=== PATIENT | female | born 1970 | race Caucasian/White ===

== ENCOUNTER 2021-11-20 16:16 | Emergency (ER) | payer BC, SELFPAY ==
[2021-11-20 16:37] VITALS: BP 118/68; PULSE 78; RESP 20; TEMP 36.3; O2SAT 97; BMI 26.9
--- NOTE | 2021-11-20 18:07 | CRLHL7_ITS ---
For Patients: As a result of the Century Cures Act, medical imaging exams and procedure reports are released immediately into your electronic medical record. You may view this report before your referring provider. If you have questions, please contact your health care provider. INDICATION: Right upper quadrant pain. Known metastases from breast cancer. TECHNIQUE: Ultrasound abdomen limited. Sonographic images of the right upper quadrant were obtained using fajardo-scale and color Doppler images. COMPARISON: None. FINDINGS: Liver: Numerous hypoechoic liver lesions, suspicious for metastatic disease. No masses. No intrahepatic biliary dilatation. Gallbladder: No stones or sludge. Normal wall thickness. No pericholecystic fluid. Gallbladder wall thickness measures 2 mm. Common bile duct: 6 mm. Pancreas: Unremarkable. Right kidney: Length 8.6 cm. Normal echotexture and cortex. No masses, stones, or hydronephrosis. Vasculature: Proximal abdominal aorta and IVC are unremarkable. IMPRESSION: 1. Multiple hypoechoic liver lesions, suspicious for liver metastases with clinical history of breast cancer and metastatic disease. 2. Normal gallbladder. No biliary dilatation. Dictated by Bernardo Gandhi MD @ 11/20/2021 7:38:11 PM Dictated by: Bernardo Gandhi MD @ 11/20/2021 19:38:18 (Electronically Signed)
--- NOTE | 2021-11-20 18:09 | CRLHL7_ITS ---
For Patients: As a result of the Century Cures Act, medical imaging exams and procedure reports are released immediately into your electronic medical record. You may view this report before your referring provider. If you have questions, please contact your health care provider. INDICATION: Right lower chest and right clavicular region pain. History of breast cancer. History of known metastatic disease to the liver. COMPARISON: Ultrasound of the right upper quadrant from today. TECHNIQUE: CT examination of the chest was performed with the uneventful intravenous administration of 100 cc of Omnipaque 350 while 3 mm thick axial sections were obtained from above the apices of the lungs through the mid renal level. Please note that all CT scans at this facility use dose modulation, iterative reconstruction, and/or weight-based dosing when appropriate to reduce radiation dose to as low as reasonably achievable. FINDINGS: : There is no sign of pulmonary embolism, with normal enhancement and branching of the pulmonary arteries. The lungs are clear with no sign of significant infiltrate or mass. There is no sign of mediastinal or hilar mass or adenopathy. The heart is normal in appearance for the patient`s age. There is age appropriate appearance of the thoracic aorta and ascending great vessels. There is no sign of supraclavicular or right axillary mass or adenopathy. A few surgical clips are seen in the left superior-lateral posterior breast, and in the left axilla consistent with previous biopsy and lymph node sampling. There is no sign of any residual or recurrent mass in the breast. There is no sign of lymphadenopathy or mass in the left axilla. The visualized superior liver has a few poorly circumscribed, hypodense masses scattered throughout it, consistent with known metastatic disease. These are located in segment 3 of the left lobe of the liver, segment 6 of the right lobe and in segment 8 of the right lobe. The visualized superior spleen, pancreas, kidneys, and adrenals are normal in appearance. The osseous structures are normal in appearance for the patient`s age. There is no sign of any lytic or blastic lesions to suggest metastatic disease to the bone. IMPRESSION: No sign of pulmonary embolism. No sign of abnormality in the lungs. Minor postoperative changes in the left breast and left axilla. A few vague, hypodense mass is present in the liver consistent with known metastatic disease. No sign of additional metastatic lesions elsewhere in the chest or upper abdomen. Please note that all CT scans at this facility use dose modulation, iterative reconstruction, and/or weight-based dosing when appropriate to reduce radiation dose to as low as reasonably achievable. Dictated by Sarbjit Beal MD @ 11/20/2021 7:46:13 PM (Electronically Signed)
--- NOTE | 2021-11-20 18:14 | ED.GENADULT ---
HPI - General Adult General Chief complaint: Abdominal Pain Stated complaint: Requesting Oncology Tests Time Seen by Provider: 11/20/21 17:57 Source: patient Mode of arrival: ambulatory Limitations: no limitations History of Present Illness HPI narrative: 51-year-old female coming in today concerned about abdomen and shoulder pain. States that on Tuesday she felt a right-sided anterior shoulder pain and shortly thereafter began having right upper quadrant abdominal pain. Movement makes it worse and deep breaths makes it worse. Nothing seems to make it better. It is not associated with eating. She denies any diarrhea or constipation. No nausea or vomiting. No dysuria increased frequency or urgency. No fevers or chills. Patient does have a history of metastatic breast cancer with couple of liver lesions, she is currently getting immunotherapy. Last chemotherapy was about 6 weeks ago per patient's account. Related Data Home Medications Medication Instructions Recorded Confirmed hydrocortisone 10 mg tablet 5 mg PO Q8H 11/20/21 11/20/21 hydrocortisone 5 mg tablet 5 mg PO Q8H 11/20/21 11/20/21 polyethylene glycol 3350 17 g 11/20/21 gram/dose oral powder triamcinolone acetonide 0.1 % 1 applic topical BID 11/20/21 11/20/21 topical cream Allergies Allergy/AdvReac Type Severity Reaction Status Date / Time No Known Drug Allergies Allergy Verified 11/20/21 19:08 Review of Systems Status of ROS: Reports: 10 or more systems reviewed and unremarkable except as noted in History and below [facility] Social History Smoking Status: Former smoker Do you use any of these nicotine containing products: None Second hand tobacco smoke exposure: Yes How often do you have a drink containing alcohol: never How often do you have six or more drinks on one occasion: Never AUDIT-C Alcohol total score: 0 Non-prescribed substance use: denies use service: No Exam Narrative: Exam Narrative: Well-nourished well-developed patient in no acute distress. Alert and oriented. Answers questions appropriately. Mood and affect are appropriate. Thoughts are goal oriented and rational. No tangential or magical thinking noted. Patient speaks in full sentences without needing to catch her breath. She has lost hair secondary to chemotherapy. HEENT: Normocephalic atraumatic. Pupils are equally round reactive to light. Extraocular muscles are intact. Conjunctivae are moist without any icterus noted. Moist mucous membranes. Posterior pharynx is normal. Neck is soft without any lymphadenopathy or thyromegaly. No masses are appreciated. Cardiovascular: Heart is regular rate and rhythm S1 and S2 are present without any murmurs. Lungs: Clear to auscultation bilaterally no wheezes rhonchi or rales are appreciated. Patient takes deep breaths without significant discomfort. Abdomen: Soft and nontender nondistended with normal bowel sounds. No guarding or rebound. No masses or organomegaly appreciated. Negative Rios sign. I cannot elicit her right upper quadrant tenderness on examination. Extremities: Bilateral lower extremities are without edema. Normal DP and PT pulses. Skin: Well perfused without any obvious rashes. Back: Back is normal appearance. Her neck is without tenderness to palpation. I cannot elicit her tenderness with manipulation of her shoulder. She has full range of motion at the shoulder without discomfort. Const: Vital Signs, click to edit/add: Vital Signs - 24 hr 11/20/21 16:37 Temperature 97.3 F L Pulse Rate [Right Pulse Oximeter] 78 Respiratory Rate 20 Blood Pressure [Ri ght Upper Arm] 118/68 Pulse Oximetry 97 Course Course Hospital Course: Labs were drawn, chest CT and right upper quadrant ultrasound was done-all fairly unremarkable aside from liver lesions from known metastatic disease. Vital Signs Vital signs: Initial Vital Signs Temperature 97.3 F L 11/20/21 16:37 Temperature Source Temporal Artery Scan 11/20/21 16:37 Pulse Rate 78 11/20/21 16:37 Respiratory Rate 20 11/20/21 16:37 Blood Pressure 118/68 11/20/21 16:37 Blood Pressure Mean 84 11/20/21 16:37 Blood Pressure Position Sitting 11/20/21 16:37 Pulse Oximetry 97 11/20/21 16:37 Vital Signs Temperature 97.3 F L 11/20/21 16:37 Pulse Rate 78 11/20/21 16:37 Respiratory Rate 20 11/20/21 16:37 Blood Pressure 118/68 11/20/21 16:37 Pulse Oximetry 97 11/20/21 16:37 Temperature 97.3 F L 11/20/21 16:37 Pulse Rate 78 11/20/21 16:37 Respiratory Rate 20 11/20/21 16:37 Blood Pressure 118/68 11/20/21 16:37 Pulse Oximetry 97 11/20/21 16:37 Medical Decision Making MDM Narrative Medical decision making narrative: 51-year-old female with metastatic breast cancer presenting with right upper quadrant and right shoulder discomfort. Labs show no evidence of infection or inflammation. LFTs slightly elevated but nothing significant. Imaging showing liver lesions but no gallbladder pathology and no pulmonary pathology. Cause of her discomfort unclear. We discussed muscular strain, irritation of the diaphragm due to liver lesions. We discussed monitoring at this time with symptomatic treatment. We discussed reasons to return to the ER. Patient was agreeable he had no other questions. Medical Records Medical records reviewed: Yes I reviewed the patient's medical records Lab Data Lab results reviewed: Yes I reviewed the patient's lab results Labs: Lab Results 11/20/21 11/20/21 11/20/21 Range/Units 18:35 18:35 18:35 WBC 6.16 (4.50-11.00) K/uL RBC 4.62 (4.00-5.20) m/uL Hgb 12.9 (12.0-16.0) gm/dL Hct 40.0 (33.0-51.0) % MCV 87 (80-100) fL MCH 28 (26-34) pg MCHC 32 (32-36) gm/dL RDW Coeff of Edin 15.0 (11.5-15.5) % Plt Count 310 (140-440) K/uL Neut % (Auto) 70.2 (42.0-72.0) % Lymph % (Auto) 19.5 L (20-44) % Mchenry % (Auto) 6.5 (0.0-11.0) % Eos % (Auto) 3.2 (0.0-7.0) % Baso % (Auto) 0.6 (0.0-3.0) % Neut # (Auto) 4.32 (1.7-7.0) K/uL Lymph # (Auto) 1.20 (0.90-2.90) K/uL Mchenry # (Auto) 0.40 (0.00-0.90) K/UL Eos # (Auto) 0.20 (0.00-0.50) K/uL Baso # (Auto) 0.04 (0.00-0.30) K/uL Abs Immat Gran (auto) 0.00 (0.00-0.30) K/uL Sodium 140 (135-149) mmol/L Potassium 4.4 (3.6-5.1) mmol/L Chloride 102 (96-114) mmol/L Carbon Dioxide 29 (20-32) mmol/L BUN 13 (7-30) mg/dL Creatinine 0.9 (0.5-1.5) mg/dL Estimated Creat Clear 60.49 Estimated GFR 77 ml/min Glucose 97 (60-115) mg/dL Lactate 0.8 (0.5-1.9) mmol/L Calcium 9.6 (8.4-10.6) mg/dL Total Bilirubin 0.3 (0.1-1.5) mg/dL Direct Bilirubin 0.1 (0.0-0.5) mg/dL AST 40 H (12-35) U/L ALT 46 H (4-35) U/L Alkaline Phosphatase 103 (40-150) U/L Troponin I 0.02 (0.01-0.04) ng/mL C-Reactive Protein 0.5 (0.5-1.0) mg/dL Total Protein 7.0 (6.0-8.3) g/dL Albumin 4.0 (3.3-5.0) g/dL Lipase 126 (23-300) U/L 11/20/21 Range/Units 18:35 WBC (4.50-11.00) K/uL RBC (4.00-5.20) m/uL Hgb (12.0-16.0) gm/dL Hct (33.0-51.0) % MCV (80-100) fL MCH (26-34) pg MCHC (32-36) gm/dL RDW Coeff of Edin (11.5-15.5) % Plt Count (140-440) K/uL Neut % (Auto) (42.0-72.0) % Lymph % (Auto) (20-44) % Mchenry % (Auto) (0.0-11.0) % Eos % (Auto) (0.0-7.0) % Baso % (Auto) (0.0-3.0) % Neut # (Auto) (1.7-7.0) K/uL Lymph # (Auto) (0.90-2.90) K/uL Mchenry # (Auto) (0.00-0.90) K/UL Eos # (Auto) (0.00-0.50) K/uL Baso # (Auto) (0.00-0.30) K/uL Abs Immat Gran (auto) (0.00-0.30) K/uL Sodium (135-149) mmol/L Potassium (3.6-5.1) mmol/L Chloride (96-114) mmol/L Carbon Dioxide (20-32) mmol/L BUN (7-30) mg/dL Creatinine (0.5-1.5) mg/dL Estimated Creat Clear Estimated GFR ml/min Glucose (60-115) mg/dL Lactate (0.5-1.9) mmol/L Calcium (8.4-10.6) mg/dL Total Bilirubin (0.1-1.5) mg/dL Direct Bilirubin (0.0-0.5) mg/dL AST (12-35) U/L ALT (4-35) U/L Alkaline Phosphatase (40-150) U/L Troponin I Cancelled (0.01-0.04) ng/mL C-Reactive Protein (0.5-1.0) mg/dL Total Protein (6.0-8.3) g/dL Albumin (3.3-5.0) g/dL Lipase (23-300) U/L Imaging Data CT scan - chest: Attestation: I have reviewed the pertinent imaging results. Radiologist's impression: FINDINGS: : There is no sign of pulmonary embolism, with normal enhancement and branching of the pulmonary arteries. The lungs are clear with no sign of significant infiltrate or mass. There is no sign of mediastinal or hilar mass or adenopathy. The heart is normal in appearance for the patient`s age. There is age appropriate appearance of the thoracic aorta and ascending great vessels. There is no sign of supraclavicular or right axillary mass or adenopathy. A few surgical clips are seen in the left superior-lateral posterior breast, and in the left axilla consistent with previous biopsy and lymph node sampling. There is no sign of any residual or recurrent mass in the breast. There is no sign of lymphadenopathy or mass in the left axilla. The visualized superior liver has a few poorly circumscribed, hypodense masses scattered throughout it, consistent with known metastatic disease. These are located in segment 3 of the left lobe of the liver, segment 6 of the right lobe and in segment 8 of the right lobe. The visualized superior spleen, pancreas, kidneys, and adrenals are normal in appearance. The osseous structures are normal in appearance for the patient`s age. There is no sign of any lytic or blastic lesions to suggest metastatic disease to the bone. IMPRESSION: No sign of pulmonary embolism. No sign of abnormality in the lungs. Minor postoperative changes in the left breast and left axilla. A few vague, hypodense mass is present in the liver consistent with known metastatic disease. No sign of additional metastatic lesions elsewhere in the chest or upper abdomen. US - abdomen: Attestation: I have reviewed the pertinent imaging results. Radiologist's impression: FINDINGS: Liver: Numerous hypoechoic liver lesions, suspicious for metastatic disease. No masses. No intrahepatic biliary dilatation. Gallbladder: No stones or sludge. Normal wall thickness. No pericholecystic fluid. Gallbladder wall thickness measures 2 mm. Common bile duct: 6 mm. Pancreas: Unremarkable. Right kidney: Length 8.6 cm. Normal echotexture and cortex. No masses, stones, or hydronephrosis. Vasculature: Proximal abdominal aorta and IVC are unremarkable. IMPRESSION: 1. Multiple hypoechoic liver lesions, suspicious for liver metastases with clinical history of breast cancer and metastatic disease. 2. Normal gallbladder. No biliary dilatation. ECG Data Attestation: I personally reviewed and interpreted this ECG as follows: (Normal sinus rhythm, pulse is 60) Discharge Plan Discharge Clinical Impression: Acute shoulder pain, Abdominal pain Patient Disposition: Home, Self-Care Condition: Stable Additional Instructions: Follow-up with your oncologist or primary care provider as needed. Return to the ER if you develop a fever, worsening pain, or vomiting. Prescriptions: No Action hydrocortisone 10 mg tablet 5 mg PO Q8H Rx Instructions: 10mg in the am, 10mg midday and 5mg in the evening. hydrocortisone 5 mg tablet 5 mg PO Q8H Label Comments: TAKE 3 TABLET UPON WAKING AND 1 TABLET 6-7 HOURS LATER polyethylene glycol 3350 17 gram/dose powder triamcinolone acetonide 0.1 % cream 1 applic TOPICAL BID Label Comments: APPLY 1 APPLICATION TOPICALLY TWICE DAILY. APPLY TO BACK Follow Up/Referrals: Ashley Allen MD [Primary Care Provider] - Stand Alone Forms: MyHealth Info Instructions
[2021-11-20 18:43] LABS: Basophils Absolute Auto 0.04 K/uL (0.00-0.30); Basophils Percent Auto 0.6 % (0.0-3.0); Eosinophils Percent Auto 3.2 % (0.0-7.0); Hemoglobin* 12.9 gm/dL (12.0-16.0); Lactate* 0.8 mmol/L (0.5-1.9); Lymphocytes Percent Auto 19.5 % (20-44); Mean Corpuscular HGB Conc 32 gm/dL (32-36); Mean Corpuscular Hemoglobin 28 pg (26-34); Mean Corpuscular Volume 87 fL (80-100); Monocytes Percent Auto 6.5 % (0.0-11.0); Neutrophils Absolute Auto 4.32 K/uL (1.7-7.0); Neutrophils Percent Auto 70.2 % (42.0-72.0); Platelet Count* 310 K/uL (140-440); Red Blood Count 4.62 m/uL (4.00-5.20); Slide Review Reflex No; White Blood Count* 6.16 K/uL (4.50-11.00)
[2021-11-20 19:04] LABS: Chloride* 102 mmol/L (96-114); Potassium* 4.4 mmol/L (3.6-5.1); Sodium* 140 mmol/L (135-149)
[2021-11-20 19:06] LABS: Bilirubin Direct* 0.1 mg/dL (0.0-0.5); Bilirubin Total* 0.3 mg/dL (0.1-1.5); Carbon Dioxide* 29 mmol/L (20-32); Creatinine* 0.9 mg/dL (0.5-1.5); Est. Creatinine Clearance* 60.49; Estimated Glomerular Filt Rate 77 ml/min
[2021-11-20 19:07] LABS: Alanine Aminotransferase* 46 U/L (4-35); Alkaline Phosphatase* 103 U/L (40-150); Aspartate Amino Transferase* 40 U/L (12-35); Blood Urea Nitrogen* 13 mg/dL (7-30); Calcium* 9.6 mg/dL (8.4-10.6); Glucose* 97 mg/dL (60-115); Lipase* 126 U/L (23-300)
[2021-11-20 19:18] LABS: Troponin I* 0.02 ng/mL (0.01-0.04)
[2021-11-20 19:35] LABS: C Reactive Protein* 0.5 mg/dL (0.5-1.0)
== END 2021-11-20 20:46 | disposition home or self-care (01) ==
PROVIDERS: Emergency Provider Family Medicine; PCP Family Medicine
DX: R10.11 Right upper quadrant pain (principal); C50.919 Malignant neoplasm of unspecified site of unspecified female breast
CPT/HCPCS: 36415; 71260; 76705; 80048; 80076; 83605; 83690; 84484; 85025; 86140; 93005; 99285; Q9967

== ENCOUNTER 2023-01-05 15:52 | Inpatient (IN) | payer BC, SELFPAY ==
[2023-01-05] VITALS (7 sets, daily range): BP systolic 120–166; BP diastolic 63–77; PULSE 85–105; RESP 16–28; TEMP 36.9–40; O2SAT 93; BMI 31.5; BMI 32.2
--- NOTE | 2023-01-05 16:25 | CRLHL7_ITS ---
For Patients: As a result of the Century Cures Act, medical imaging exams and procedure reports are released immediately into your electronic medical record. You may view this report before your referring provider. If you have questions, please contact your health care provider. Indication: Cough Technique: Chest 2 views Comparison: None Findings/Impression: Cardiovascular and mediastinum: Heart size and vasculature are normal in caliber and appearance. Mediastinum is within normal limits. Right-sided Port-A-Cath with tip in the proximal right atrium. Lungs and pleural spaces: Lungs are clear. No sign of infiltrate or mass. No sign of pleural effusion. No pneumothorax. Bones and soft tissues: Left breast surgical clips. Dictated by Zeb Balderrama MD @ 01/05/2023 5:18:13 PM (Electronically Signed)
--- NOTE | 2023-01-05 16:30 | ED_ITS ---
HPI - General Adult General Date Seen: 01/05/23 Chief complaint: Cough Stated complaint: Cough, fever Time Seen by Provider: 01/05/23 15:59 Source: patient Mode of arrival: ambulatory Limitations: no limitations History of Present Illness HPI narrative: Patient is a 52-year-old female with a history of metastatic breast cancer to liver and lymph nodes on chemotherapy through [facility] presenting to the emergency department for cough and fever. States symptoms started last night. She is not taking anything for the fever today. Symptoms continued so she decided come the emergency department to be evaluated. Does state her chemotherapy has caused her to have a low white blood cell count. States last week she brought her to urgent care for stitches Neuro several sick peo ple there. Her that she is not aware of any sick contacts. Denies chest pain, weakness, night blindness, dizziness, numbness. States she is short of breath but not any different than her baseline. She does have a history of blood clots and is on Eliquis. States she has not been very hungry has been feeling mildly nauseated. Also states she does state cortisone for adrenal insufficiency. No other medical issues. No other concerns at this time. Denies coughing up any phlegm. Related Data Home Medications Medication Instructions Recorded Confirmed hydrocortisone 10 mg tablet 5 mg PO Q8H 11/20/21 11/20/21 hydrocortisone 5 mg tablet 5 mg PO Q8H 11/20/21 11/20/21 polyethylene glycol 3350 17 g 11/20/21 gram/dose oral powder triamcinolone acetonide 0.1 % 1 applic topical BID 11/20/21 11/20/21 topical cream Allergies Allergy/AdvReac Type Severity Reaction Status Date / Time No Known Drug Allergies Allergy Verified 01/05/23 16:07 Review of Systems Status of ROS: Reports: 10 or more systems reviewed and unremarkable except as noted in History and below [facility] Medical History (Updated 01/05/23 @ 20:03 by Camila Samuels MD) Breast cancer metastasized to liver ?C50.919 - Malignant neoplasm of unspecified site of unspecified female breast (ICD-10) ?C78.7 - Secondary malignant neoplasm of liver and intrahepatic bile duct (ICD-10) Pulmonary embolism ?I26.99 - Other pulmonary embolism without acute cor pulmonale (ICD-10) DVT (deep venous thrombosis) ?I82.409 - Acute embolism and thrombosis of unspecified deep veins of unspecified lower extremity (ICD-10) Surgical History (Updated 01/05/23 @ 20:03 by Camila Samuels MD) H/O LEEP ?Z98.890 - Other specified postprocedural states (ICD-10) Hx of appendectomy ?Z90.49 - Acquired absence of other specified parts of digestive tract (ICD- 10) Social History What is your current living situation?: I presently have a place to live Problems where you live: no known problems Problems where you live details: NA In the past 12 months, utilities in danger of being shut off: no In past 12 months, lack of transportation kept you from medical appts, meetings, work, or getting things needed for daily living: no In the past 12 mos, have been you worried that your food would run out before you had money to buy more?: never true In the past 12 mos, the food you bought just didn't last and you didn't have money to buy more?: never true Smoking Status: Former smoker Do you use any of these nicotine containing products: None Second hand tobacco smoke exposure: Yes How often do you have a drink containing alcohol: never How often do you have six or more drinks on one occasion: Never AUDIT-C Alcohol total score: 0 Non-prescribed substance use: denies use Caffeine: No How often does anyone, including family, friends and others, physically hurt you : never How often does anyone, including family, friends and others, insult or talk down to you: never How often does anyone, including family, friends and others, threaten you with harm: never How often does anyone, including family, friends and others, scream or curse at you: never service: No Exam Narrative: Exam Narrative: Const: Well-nourished, Well-developed, in mild distress Eyes: PERRL, no conjunctival injection, and symmetrical lids HENT: Atraumatic external nose and ears. Moist mucous membranes. Neck: Symmetric, trachea midline, No thyromegaly. CVS: Tachycardia, No murmurs or gallops. Peripheral pulses 2+ and equal in all extremities RESP: Unlabored respiratory effort. Clear to auscultation bilaterally. GI: Nontender/Nondistended, No rebound or guarding. MSK:Extremities w/o deformity, Normal Active ROM Skin: Warm, Dry. No rashes or lesions. Neuro: Normal Muscle tone, No focal neurological deficits. Psych: Awake, Alert, & Oriented x3. Appropriate mood and affect. Const: Vital Signs, click to edit/add: Vital Signs - 24 hr 01/05/23 16:07 01/05/23 18:32 01/05/23 19:31 Temperature 100.9 F H 104 F H 99.9 F H Pulse Rate [Pulse Oximeter] 100 105 H Respiratory Rate 28 H Blood Pressure [Ri t Upper Arm] 166/77 H 153/73 H Pulse Oximetry 93 93 Oxygen Delivery Me thod Room Air Room Air Course Vital Signs Vital signs: Initial Vital Signs Temperature 100.9 F H 01/05/23 16:07 Temperature Source Temporal Artery Scan 01/05/23 16:07 Pulse Rate 100 01/05/23 16:07 Pulse Rhythm Regular 01/05/23 16:07 Respiratory Rate 28 H 01/05/23 16:07 Blood Pressure 166/77 H 01/05/23 16:07 Blood Pressure Mean 106 H 01/05/23 16:07 Blood Pressure Position Supine 01/05/23 16:07 Pulse Oximetry 93 01/05/23 16:07 Oxygen Delivery Method Room Air 01/05/23 16:07 Vital Signs Temperature 100.9 F H 01/05/23 16:07 Pulse Rate 100 01/05/23 16:07 Respiratory Rate 28 H 01/05/23 16:07 Blood Pressure 166/77 H 01/05/23 16:07 Pulse Oximetry 93 01/05/23 16:07 Oxygen Delivery Method Room Air 01/05/23 16:07 Temperature 99 F 01/05/23 19:55 Pulse Rate 96 01/05/23 19:55 Respiratory Rate 22 01/05/23 19:55 Blood Pressure 148/75 H 01/05/23 19:55 Pulse Oximetry 93 01/05/23 19:55 Oxygen Delivery Method Room Air 01/05/23 19:55 Medical Decision Making MDM Narrative Medical decision making narrative: Patient is a 52-year-old female on chemotherapy presenting for a fever. She does have a fever here in triage. There is concern for neutropenic fever and her chemotherapy has caused her to have a low white blood cell count. She denies any increased shortness of breath but she is tachycardic to 28. While she is on Eliquis with her history of if still concerned she could be developing a blood clot. We will order D-dimer. COVID/flu/RSV was ordered. Symptoms could be from pneumonia. Chest x-ray has been ordered. She is having no abdominal pain but some mild nausea Zofran was given. Tylenol given for her fever. She does states she has been feeling dehydrated and fluids will be given. Patient's lab work returns with a white count 3.77. She has a neutrophil count of 1.8. She is not having neutropenic fever at this time. D-dimer is elevated 2.83 and CTA was ordered. Lactate returns at 2.2. Repeat reflux scheduled for 4 hours. She is currently receiving fluids. Urine shows no signs of infection. COVID/flu/RSV were negative. She is given Tylenol for her fever. After this we rechecked her vitals few hours later and temperature is now 104. She continues to be tachypneic and tachycardic. She states she has had similar symptoms before roughly 5 weeks ago right after she started her cancer medication. Eribulin. She states at that time it occurred after about a day or 2. This time symptoms occurring over week later. I did speak to the on-call oncologist at the [facility], where she does her treatment, any states well it could be secondary to that they cannot definitively say. He recommends observation in the hospital overnight. She continues to have a fever she has good empiric antibiotics. Patient is given Toradol for her fever. Next fallen was 0.02. We will repeat this. Lipase within normal limits. CTA returned showing no concerning abnormalities. EKG shows no concerning abnormalities. Patient was accepted to the hospitalist service. Blood cultures ordered . Of note the patient did complain about and scratchy feeling in the back of her throat. She says it comes and goes. It is not appear to be blocking area where this time. To consider doing a CT scan of her neck but she looks stable at this point I believe she needs more contrast. I informed the hospitalist of this. Lab Data Labs: Lab Results 01/05/23 Range/Units 16:26 WBC 3.77 L (4.50-11.00) K/uL RBC 3.83 L (4.00-5.20) m/uL Hgb 12.1 (12.0-16.0) gm/dL Hct 37.0 (33.0-51.0) % MCV 97 (80-100) fL MCH 32 (26-34) pg MCHC 33 (32-36) gm/dL RDW Coeff of Edin 16.8 H (11.5-15.5) % Plt Count 246 (140-440) K/uL Neut % (Auto) 46.9 (42.0-72.0) % Lymph % (Auto) 24.1 (20-44) % Harrison % (Auto) 27.6 H (0.0-11.0) % Eos % (Auto) 0.0 (0.0-7.0) % Baso % (Auto) 1.1 (0.0-3.0) % Neut # (Auto) 1.80 (1.7-7.0) K/uL Lymph # (Auto) 0.90 (0.90-2.90) K/uL Harrison # (Auto) 1.00 H (0.00-0.90) K/UL Eos # (Auto) 0.00 (0.00-0.50) K/uL Baso # (Auto) 0.00 (0.00-0.30) K/uL Abs Immat Gran (auto) 0.00 (0.00-0.30) K/uL Imm/Tot Granulo (auto) 0.3 % D-Dimer Quant (PE/DVT) 2.83 H (0.00-0.50) ug/ml Sodium 136 (135-149) mmol/L Potassium 3.6 (3.6-5.1) mmol/L Chloride 104 (96-114) mmol/L Carbon Dioxide 24 (20-32) mmol/L Anion Gap 8 (7-15) mEq/L BUN 9 (7-30) mg/dL Creatinine 0.7 (0.5-1.5) mg/dL Estimated Creat Clear 76.88 Estimated GFR 103 ml/min Glucose 95 (60-115) mg/dL Lactate 2.2 H (0.5-1.9) mmol/L Calcium 8.9 (8.4-10.6) mg/dL Magnesium 1.9 (1.5-2.6) mg/dL Total Bilirubin 1.0 (0.1-1.5) mg/dL AST 96 H (12-35) U/L ALT 41 H (4-35) U/L Alkaline Phosphatase 86 (40-150) U/L Troponin I 0.02 (0.01-0.04) ng/mL Total Protein 6.6 (6.0-8.3) g/dL Albumin 3.8 (3.3-5.0) g/dL Lipase 116 (23-300) U/L Urine Color Yellow (Yellow) Urine Appearance Cloudy A (Clear) Urine pH 8.5 (5.0-8.5) Ur Specific [place] 1.020 (1.000-1.030) Urine Protein Negative (Negative) Urine Glucose (UA) Negative (Negative) Urine Ketones Negative (Negative) Urine Blood Negative (Negative) Urine Nitrite Negative (Negative) Urine Bilirubin Negative (Negative) Urine Urobilinogen 0.2 (0.2-1.0) Ur Leukocyte Esterase Trace A (Negative) Urine RBC 0-2 (0-2) Urine WBC 2-5 (0-5) Ur Squamous Epith Cells Few (None-Few) Urine Bacteria None (None) SARS-CoV-2 (PCR) Negative SARS-CoV-2 (Negative) Influenza Type A (PCR) Negative PCR FLU A (Negative) Influenza Type B (PCR) Negative PCR FLU B (Negative) RSV (PCR) Negative PCR RSV (Negative) Imaging Data Chest x-ray: Radiologist's impression: Indication: Cough Technique: Chest 2 views Comparison: None Findings/Impression: Cardiovascular and mediastinum: Heart size and vasculature are normal in caliber and appearance. Mediastinum is within normal limits. Right-sided Port-A-Cath with tip in the proximal right atrium. Lungs and pleural spaces: Lungs are clear. No sign of infiltrate or mass. No sign of pleural effusion. No pneumothorax. Bones and soft tissues: Left breast surgical clips. Dictated by Zeb Balderrama MD @ 01/05/2023 5:18:13 PM CTA chest: Radiologist's impression: INDICATION: Cough, tachypnea, history breast cancer with metastatic disease to the liver TECHNIQUE: CT chest pulmonary PE protocol acquired with 95 cc Isovue 370 IV contrast. COMPARISON: November 20, 2021, chest radiograph January 05, 2023 FINDINGS: Cardiovascular structures: Normal vascular enhancement of the pulmonary arteries, no sign of pulmonary embolism. Heart size is normal. No sign of aneurysm in the thoracic aorta. Right-sided Port-A-Cath tip terminates at the level of the right atrium. Mediastinum and saran: No mass or adenopathy. Lungs: Clear. Pleura and pericardium: No effusions. Chest wall and axilla: No mass or adenopathy. Surgical clips in the left axilla and left breast. Upper abdomen: There are several ill-defined hyperdense masses in the liver on a background of diffuse hepatic steatosis. These are suboptimally seen on this arterial phase imaging CT. 1.3 cm portacaval lymph node. Bones: No significant findings. No suspicious osseous lesions. IMPRESSION: No pulmonary embolism or pneumonia. Ill-defined hyperdense masses in the liver on a background of diffuse hepatic steatosis. Consider MRI liver to evaluate extent of metastatic disease. 1.3 cm portacaval lymph node. Please note that all CT scans at this facility use dose modulation, iterative reconstruction, and/or weight-based dosing when appropriate to reduce radiation dose to as low as reasonably achievable. Dictated by Suni Gomez MD @ 01/05/2023 6:37:41 PM ECG Data Attestation: I personally reviewed and interpreted this ECG as follows: Prior ECG tracings: available for review (11/21/2021) Interpretation: Sinus tachycardia at 305 beats per minute, normal intervals, normal axis, no ST T-wave abnormalities Discharge Plan Discharge Clinical Impression: Fever Qualifiers: Fever type: unspecified Qualified Code(s): R50.9 - Fever, unspecified Patient Disposition: Admitted As Observation Discharge Location: [facility] Condition: Stable
[2023-01-05 16:53] LABS: Appearance Urine Cloudy (Clear); Bilirubin Urine Negative (Negative); Blood Urine Negative (Negative); Color Urine Yellow (Yellow); Glucose Urine Negative (Negative); Ketones Urine Negative (Negative); Leukocyte Esterase Urine Trace (Negative); Nitrite Urine Negative (Negative); Protein Urine Negative (Negative); Urobilinogen Urine 0.2 (0.2-1.0); pH Urine 8.5 (5.0-8.5)
[2023-01-05 17:00] LABS: Lactate* 2.2 mmol/L (0.5-1.9)
[2023-01-05] MEDS: LACTATED RINGERS 1000 ML 1,000 ML IV (17:04)
[2023-01-05 17:08] LABS: Basophils Percent Auto 1.1 % (0.0-3.0); Hemoglobin* 12.1 gm/dL (12.0-16.0); Immature Granulocytes Pct Auto 0.3 %; Lymphocytes Percent Auto 24.1 % (20-44); Mean Corpuscular HGB Conc 33 gm/dL (32-36); Mean Corpuscular Hemoglobin 32 pg (26-34); Mean Corpuscular Volume 97 fL (80-100); Monocytes Percent Auto 27.6 % (0.0-11.0); Neutrophils Percent Auto 46.9 % (42.0-72.0); Platelet Count* 246 K/uL (140-440); RDW Coefficient of Variation % 16.8 % (11.5-15.5); Red Blood Count 3.83 m/uL (4.00-5.20); White Blood Count* 3.77 K/uL (4.50-11.00)
[2023-01-05 17:10] LABS: Slide Review Reflex No
[2023-01-05 17:18] LABS: Albumin* 3.8 g/dL (3.3-5.0)
[2023-01-05 17:19] LABS: Chloride* 104 mmol/L (96-114); Potassium* 3.6 mmol/L (3.6-5.1); Sodium* 136 mmol/L (135-149)
[2023-01-05 17:21] LABS: Alkaline Phosphatase* 86 U/L (40-150); Anion Gap 8 mEq/L (7-15); Aspartate Amino Transferase* 96 U/L (12-35); Carbon Dioxide* 24 mmol/L (20-32); Creatinine* 0.7 mg/dL (0.5-1.5); Est. Creatinine Clearance* 76.88; Estimated Glomerular Filt Rate 103 ml/min; Total Protein* 6.6 g/dL (6.0-8.3)
[2023-01-05 17:22] LABS: Alanine Aminotransferase* 41 U/L (4-35); Blood Urea Nitrogen* 9 mg/dL (7-30); Calcium* 8.9 mg/dL (8.4-10.6); Glucose* 95 mg/dL (60-115); Lipase* 116 U/L (23-300); Magnesium* 1.9 mg/dL (1.5-2.6)
[2023-01-05 17:24] LABS: RBC Urine 0-2 (0-2); Squamous Epithelial Cell Urine Few (None-Few)
[2023-01-05 17:27] LABS: D Dimer Quantitative* 2.83 ug/ml (0.00-0.50)
[2023-01-05 17:33] LABS: Troponin I* 0.02 ng/mL (0.01-0.04)
--- NOTE | 2023-01-05 17:36 | CRLHL7_ITS ---
For Patients: As a result of the Century Cures Act, medical imaging exams and procedure reports are released immediately into your electronic medical record. You may view this report before your referring provider. If you have questions, please contact your health care provider. INDICATION: Cough, tachypnea, history breast cancer with metastatic disease to the liver TECHNIQUE: CT chest pulmonary PE protocol acquired with 95 cc Isovue 370 IV contrast. COMPARISON: November 20, 2021, chest radiograph January 05, 2023 FINDINGS: Cardiovascular structures: Normal vascular enhancement of the pulmonary arteries, no sign of pulmonary embolism. Heart size is normal. No sign of aneurysm in the thoracic aorta. Right-sided Port-A-Cath tip terminates at the level of the right atrium. Mediastinum and saran: No mass or adenopathy. Lungs: Clear. Pleura and pericardium: No effusions. Chest wall and axilla: No mass or adenopathy. Surgical clips in the left axilla and left breast. Upper abdomen: There are several ill-defined hyperdense masses in the liver on a background of diffuse hepatic steatosis. These are suboptimally seen on this arterial phase imaging CT. 1.3 cm portacaval lymph node. Bones: No significant findings. No suspicious osseous lesions. IMPRESSION: No pulmonary embolism or pneumonia. Ill-defined hyperdense masses in the liver on a background of diffuse hepatic steatosis. Consider MRI liver to evaluate extent of metastatic disease. 1.3 cm portacaval lymph node. Please note that all CT scans at this facility use dose modulation, iterative reconstruction, and/or weight-based dosing when appropriate to reduce radiation dose to as low as reasonably achievable. Dictated by Suni Gomez MD @ 01/05/2023 6:37:41 PM (Electronically Signed)
[2023-01-05] MEDS: ACETAMINOPHEN 325 MG TABLET 650 MG PO (17:52)
[2023-01-05] MEDS: ONDANSETRON ODT 4 MG TAB PO (17:52)
[2023-01-05 18:07] LABS: PCR FLU A Negative PCR FLU A (Negative); PCR FLU B Negative PCR FLU B (Negative); PCR RSV Negative PCR RSV (Negative)
[2023-01-05 18:13] LABS: SARS PCR* Negative SARS-CoV-2 (Negative)
[2023-01-05] MEDS: KETOROLAC 15 MG/ML inj IVP (18:46)
--- NOTE | 2023-01-05 19:33 | ED.NURSE ---
Patient took home medications that were scheduled for 5 PM in ED.
--- NOTE | 2023-01-05 21:09 | P.IMHP_ITS ---
Hospitalist- H&P: HPI History of Present Illness Date Seen: 01/05/23 Chief complaint: Cough, fever Narrative: Peggy Barrientos is a 52 year old female with a known history of breast cancer, metastatic to liver, who presented to the emergency room with a one-day history of fever. First noted temperature >100 today, noted intermittent dry cough overnight. No other symptoms or concerns. Appetite a little low today. She follows with [facility] for her breast cancer. Currently on Eribulin, last dose 12/28 (this is her week off). Notably, she had a fever in October after Eribulin administration (this self resolved and did not require antibiotics or hospitalization). ER course and findings: - WBC 3.7 - Hgb 12.1 - lactate 2.2 - elevated d-dimer, mildly elevated LFTs (close to baseline) - no evidence of acute PE or infectious process on CTA - blood cultures collected and pending - negative RSV, COVID, influenza - cough improved in the ED (after dose of Toradol and IV fluids) - ER physician reviewed case with [facility], who recommend overnight observation, no empiric antibiotics unless worsening condition or identifiable source Upon arrival to the floor, Peggy is feeling well and temperature is <100. She traveled by air to [place] last weekend with her to visit their daughter, who is in chiropractor school. Has not seen the dentist in the last month. No known sick contacts recently. Histories updated below. Review of Systems Status of ROS: Reports: 10 or more systems reviewed and unremarkable except as noted in History and below Narrative: - specifically denies dysuria, rashes - intermittent left-sided abdominal pain, chronic and unchanged - no diarrhea or constipation - has noted intermittent discomfort in the back of her throat, not noted during my interview. She has been able to eat and drink without difficulty and has no trismus PFSH PFS Medical History (Updated 01/05/23 @ 21:23 by Camila Samuels MD) Breast cancer metastasized to liver ?C50.919 - Malignant neoplasm of unspecified site of unspecified female breast (ICD-10) ?C78.7 - Secondary malignant neoplasm of liver and intrahepatic bile duct (ICD-10) Pulmonary embolism ?I26.99 - Other pulmonary embolism without acute cor pulmonale (ICD-10) DVT (deep venous thrombosis) ?I82.409 - Acute embolism and thrombosis of unspecified deep veins of unspecified lower extremity (ICD-10) Surgical History (Updated 01/05/23 @ 20:03 by Camila Samuels MD) H/O LEEP ?Z98.890 - Other specified postprocedural states (ICD-10) Hx of appendectomy ?Z90.49 - Acquired absence of other specified parts of digestive tract (ICD- 10) Social History What is your current living situation?: I presently have a place to live Problems where you live: no known problems Problems where you live details: NA In the past 12 months, utilities in danger of being shut off: no In past 12 months, lack of transportation kept you from medical appts, meetings, work, or getting things needed for daily living: no In the past 12 mos, have been you worried that your food would run out before you had money to buy more?: never true In the past 12 mos, the food you bought just didn't last and you didn't have money to buy more?: never true Smoking Status: Former smoker Do you use any of these nicotine containing products: None Second hand tobacco smoke exposure: Yes How often do you have a drink containing alcohol: never How often do you have six or more drinks on one occasion: Never AUDIT-C Alcohol total score: 0 Non-prescribed substance use: denies use Caffeine: No How often does anyone, including family, friends and others, physically hurt you : never How often does anyone, including family, friends and others, insult or talk down to you: never How often does anyone, including family, friends and others, threaten you with harm: never How often does anyone, including family, friends and others, scream or curse at you: never service: No Meds Home Medications and Allergies Home Medications Medication Instructions Recorded Confirmed Type hydrocortisone 10 mg tablet 5 mg PO Q8H 11/20/21 01/05/23 History hydrocortisone 5 mg tablet 5 mg PO Q8H 11/20/21 01/05/23 History triamcinolone acetonide 0.1 % 1 applic topical BID PRN 11/20/21 01/05/23 History topical cream apixaban 5 mg tablet (Eliquis) 5 mg PO BID 01/05/23 01/05/23 History Allergies Allergy/AdvReac Type Severity Reaction Status Date / Time No Known Drug Allergies Allergy Verified 01/05/23 16:07 Exam Narrative: Exam Narrative: GEN: Alert and oriented, sitting comfortably in bed and eating dinner HEENT: EOMIs bilaterally, no scleral icterus, oropharynx moist and clear without concerning lesions, no trismus. No adenopathy or masses in neck CV: RRR, soft systolic murmur without concerning features heard best at left sternal border R: LCTA bilaterally without concerning wheezing or rales. Air movement is adequate Ab: Soft and nontender, tolerates palpation Ext: wwp, no concerning edema Skin: No concerning skin lesions or rashes on exposed skin Neuro: No focal deficits Psych: Appropriate Const: Vital Signs, click to edit/add: Vital Signs - 24 hr 01/05/23 16:07 01/05/23 18:32 01/05/23 19:31 Temperature 100.9 F H 104 F H 99.9 F H Pulse Rate [Pulse Oximeter] 100 105 H Respiratory Rate 28 H Blood Pressure [Ri ght Arm] Blood Pressure [Ri ght Upper Arm] 166/77 H 153/73 H Pulse Oximetry 93 93 Oxygen Delivery Me thod Room Air Room Air 01/05/23 19:55 Temperature 99 F Pulse Rate [Pulse Oximeter] 96 Respiratory Rate 22 Blood Pressure [Ri ght Arm] 148/75 H Blood Pressure [Ri ght Upper Arm] Pulse Oximetry 93 Oxygen Delivery Me thod Room Air Hospitalist - H&P: Result Labs Labs: Short CBC 01/05/23 Range/Units 16:26 WBC 3.77 L (4.50-11.00) K/uL Hgb 12.1 (12.0-16.0) gm/dL Hct 37.0 (33.0-51.0) % Plt Count 246 (140-440) K/uL BMP 01/05/23 16:26 Sodium 136 Potassium 3.6 Chloride 104 Carbon Dioxide 24 BUN 9 Creatinine 0.7 Glucose 95 Calcium 8.9 Cardiac Enzymes 01/05/23 Range/Units 16:26 Troponin I 0.02 (0.01-0.04) ng/mL Liver Function 01/05/23 Range/Units 16:26 Total Bilirubin 1.0 (0.1-1.5) mg/dL AST 96 H (12-35) U/L ALT 41 H (4-35) U/L Alkaline Phosphatase 86 (40-150) U/L Albumin 3.8 (3.3-5.0) g/dL Urine 01/05/23 Range/Units 16:26 Urine Color Yellow (Yellow) Urine Appearance Cloudy A (Clear) Urine pH 8.5 (5.0-8.5) Ur Specific [place] 1.020 (1.000-1.030) Urine Protein Negative (Negative) Urine Glucose (UA) Negative (Negative) Assessment and Plan Assessment and plan (1) Fever: Problem comment: - FUO (01/05) in immunocompromised patient: ddx includes drug fever, viral versus bacterial illness, vasculitis - cultures pending, workup in ED reassuring - per [facility], no empiric antibiotics at this time. Will initiate with any changes in condition Status: Acute (2) Breast cancer metastasized to liver: Status: Acute Plan - Per above - home dose of Eliquis for prophylaxis - likely discharge home when medically appropriate (possibly as early as tomorrow) - partner updated at bedside, questions answered
[2023-01-05] MEDS: 0.9 % SODIUM CHLORIDE 1000 ml 1,000 ML 150 ML IV (21:47)
[2023-01-05] MEDS: SODIUM CHLORIDE 0.9 % (FLUSH) 10 ML SYRINGE 5 ML IVF (21:47)
--- NOTE | 2023-01-05 22:34 | PC.NURSE ---
Admit 1929- Patient arrives to unit via wheelchair- is ambulatory. Cough noted. She denies pain. She states she has taken her evening doses of hydrocortisone and eliquis. Port to right chest accessed prior to arrival- maintenance fluids infusing without issue. Appetite intact.
[2023-01-06] MEDS: 0.9 % SODIUM CHLORIDE 1000 ml 1,000 ML 150 ML IV (02:41)
[2023-01-06 02:43] VITALS: TEMP 37.6
[2023-01-06] MEDS: ACETAMINOPHEN 325 MG TABLET 975 MG PO (02:43)
[2023-01-06 02:49] VITALS: BP 155/81; PULSE 96; RESP 16; TEMP 37.6; O2SAT 94
--- NOTE | 2023-01-06 03:22 | PC.NURSE ---
Pt rested well this night. Up IND in room. Temp at 0300 was 99.6. Pt given PRN Tylenol. Reporting zero pain. No N/V.
[2023-01-06 06:15] LABS: Lactate* 1.2 mmol/L (0.5-1.9)
[2023-01-06 06:20] LABS: Basophils Percent Auto 1.3 % (0.0-3.0); Hematocrit 32.8 % (33.0-51.0); Hemoglobin* 10.5 gm/dL (12.0-16.0); Immature Granulocytes Pct Auto 0.7 %; Lymphocytes Percent Auto 23.4 % (20-44); Mean Corpuscular HGB Conc 32 gm/dL (32-36); Mean Corpuscular Hemoglobin 31 pg (26-34); Mean Corpuscular Volume 97 fL (80-100); Neutrophils Percent Auto 43.6 % (42.0-72.0); Platelet Count* 204 K/uL (140-440); RDW Coefficient of Variation % 16.6 % (11.5-15.5); Red Blood Count 3.38 m/uL (4.00-5.20); White Blood Count* 3.03 K/uL (4.50-11.00)
[2023-01-06 06:21] LABS: Slide Review Reflex No
[2023-01-06 06:37] LABS: Albumin* 3.1 g/dL (3.3-5.0); Chloride* 103 mmol/L (96-114); Potassium* 3.4 mmol/L (3.6-5.1); Sodium* 138 mmol/L (135-149)
[2023-01-06 06:39] LABS: Anion Gap 11 mEq/L (7-15); Bilirubin Total* 0.8 mg/dL (0.1-1.5); Carbon Dioxide* 24 mmol/L (20-32); Creatinine* 0.8 mg/dL (0.5-1.5); Est. Creatinine Clearance* 67.27; Estimated Glomerular Filt Rate 88 ml/min
[2023-01-06 06:40] LABS: Alanine Aminotransferase* 35 U/L (4-35); Alkaline Phosphatase* 67 U/L (40-150); Aspartate Amino Transferase* 65 U/L (12-35); Blood Urea Nitrogen* 9 mg/dL (7-30); Glucose* 81 mg/dL (60-115); Total Protein* 5.6 g/dL (6.0-8.3)
[2023-01-06 07:00] VITALS: BP 142/75; PULSE 84; RESP 16; TEMP 37.3; O2SAT 93
[2023-01-06] MEDS: HYDROCORTISONE 10 MG TABLET 5 MG PO (09:06)
[2023-01-06] MEDS: APIXABAN 5 MG TABLET PO (09:06)
[2023-01-06] MEDS: KETOROLAC 30 MG/ML inj 15 MG IVP (09:06)
[2023-01-06] MEDS: SODIUM CHLORIDE 0.9 % (FLUSH) 10 ML SYRINGE 5 ML IVF (09:07)
[2023-01-06] MEDS: HEPARIN 500 UNIT/5 ML SYRINGE IVF (09:07)
[2023-01-06] MEDS: HYDROCORTISONE 10 MG TABLET PO (09:11)
[2023-01-06 11:00] VITALS: BP 142/75; PULSE 84; RESP 16; TEMP 37.3; O2SAT 93
--- NOTE | 2023-01-06 11:59 | P.DS_ITS ---
DS: Providers Provider Date Seen: 01/06/23 Date of admission: 01/05/23 20:59 Primary care physician: Not a Local Provider Admitting Clinician: Camila Samuels MD Attending Physician on discharge: Camila Samuels MD Date of Discharge: 01/06/23 DS: Diagnosis Discharge Diagnosis (1) Fever: Status: Acute Problem details: - FUO (01/05) in immunocompromised patient: ddx includes drug fever, viral versus bacterial illness, vasculitis - fever resolved and patient felt significantly improved on hospital day 1 - blood cultures NGTD, CBC baseline - empiric abx deferred per [facility] (phone consult from ED) - given improvement, appropriate for d/c home 01/06 with strict return precautions (2) Breast cancer metastasized to liver: Status: Acute DS: Summary Hospital Course Hospital Course: Peggy Barrientos is a 52 year old female with a known history of breast cancer, metastatic to liver, who presented to the emergency room on 01/05 with a one-day history of fever. Associated symptoms included intermittent dry cough (improved during stay, seemed worse in the morning, presumably 2/2 post-nasal drip). Notable findings during stay: WBC 3.7, Lactate 2.2 (--> 1.2), no acute abnormalities on CTA, negative BCxTD, negative RSV/Influenza/COVID She traveled by air to [place] last weekend with her to visit their daughter, who is in chiropractor school. Has not seen the dentist in the last month. No known sick contacts recently. During stay, fever resolved and patient felt comfortable with d/c home and close Oncology f/u. We reviewed strict return precautions; she and verbalized understanding. Status at Discharge Functional status at discharge: independent ambulation Overall status at discharge: patient is back to baseline Time Spent with Patient Time attestation: Total time spent providing and/or coordinating discharge services: Time spent: Greater than 30 minutes Specific discharge activities: medication reconciliation, updates to specialty providers Exam Narrative: Exam Narrative: GEN: Alert and oriented, nontoxic in appearance HEENT: EOMIs bilaterally, no scleral icterus, posterior oropharynx normal without trismus CV: RRR, no tachycardia, soft systolic murmur without concerning features R: LCTA bilaterally without concerning wheezing, air movement adequate Ext: wwp, no concerning edema Skin: No concerning skin lesions or rashes on exposed skin Neuro: Nonfocal Psych: Appropriate Const: Vital Signs, click to edit/add: Vital Signs - 24 hr 01/05/23 16:07 01/05/23 18:32 01/05/23 19:31 Temperature 100.9 F H 104 F H 99.9 F H Pulse Rate [Pulse Oximeter] 100 105 H Respiratory Rate 28 H Blood Pressure [Ri ght Arm] Blood Pressure [Ri ght Upper Arm] 166/77 H 153/73 H Pulse Oximetry 93 93 Oxygen Delivery Me thod Room Air Room Air 01/05/23 19:55 01/05/23 23:17 01/05/23 23:31 Temperature 99 F 98.4 F Pulse Rate [Pulse Oximeter] 96 85 85 Respiratory Rate 22 16 16 Blood Pressure [Ri ght Arm] 148/75 H 120/63 Blood Pressure [Ri ght Upper Arm] Pulse Oximetry 93 93 Oxygen Delivery Me thod Room Air Room Air 01/05/23 23:32 01/06/23 02:43 01/06/23 02:49 Temperature 99.6 F 99.6 F Pulse Rate [Pulse Oximeter] 96 Respiratory Rate 16 16 Blood Pressure [Ri ght Arm] 155/81 H Blood Pressure [Ri ght Upper Arm] Pulse Oximetry 93 94 Oxygen Delivery Me thod Room Air Room Air 01/06/23 07:00 01/06/23 07:00 01/06/23 07:00 Temperature 99.1 F Pulse Rate [Pulse Oximeter] 84 Respiratory Rate 16 16 16 Blood Pressure [Ri ght Arm] 142/75 H Blood Pressure [Ri ght Upper Arm] Pulse Oximetry 93 93 Oxygen Delivery Me thod Room Air Room Air 01/06/23 11:00 Temperature 99.1 F Pulse Rate [Pulse Oximeter] 84 Respiratory Rate 16 Blood Pressure [Ri ght Arm] 142/75 H Blood Pressure [Ri ght Upper Arm] Pulse Oximetry 93 Oxygen Delivery Me thod Room Air DS: Data Data Completed and Pending Labs on day of discharge: Labs from last 24 hours 01/06/23 01/05/23 05:52 16:26 WBC 3.03 L 3.77 L RBC 3.38 L 3.83 L Hgb 10.5 L 12.1 Hct 32.8 L 37.0 MCV 97 97 MCH 31 32 MCHC 32 33 RDW Coeff of Edin 16.6 H 16.8 H Plt Count 204 246 Neut % (Auto) 43.6 46.9 Lymph % (Auto) 23.4 24.1 [place] % (Auto) 31.0 H 27.6 H Eos % (Auto) 0.0 0.0 Baso % (Auto) 1.3 1.1 Neut # (Auto) 1.30 L 1.80 Lymph # (Auto) 0.70 L 0.90 [place] # (Auto) 0.90 1.00 H Eos # (Auto) 0.00 0.00 Baso # (Auto) 0.00 0.00 Abs Immat Gran (auto) 0.00 0.00 Imm/Tot Granulo (auto) 0.7 0.3 D-Dimer Quant (PE/DVT) 2.83 H Sodium 138 136 Potassium 3.4 L 3.6 Chloride 103 104 Carbon Dioxide 24 24 Anion Gap 11 8 BUN 9 9 Creatinine 0.8 0.7 Estimated Creat Clear 67.27 76.88 Estimated GFR 88 103 Glucose 81 95 Lactate 1.2 2.2 H Calcium 8.0 L 8.9 Magnesium 2.0 1.9 Total Bilirubin 0.8 1.0 AST 65 H 96 H ALT 35 41 H Alkaline Phosphatase 67 86 Troponin I 0.02 Total Protein 5.6 L 6.6 Albumin 3.1 L 3.8 Lipase 116 Urine Color Yellow Urine Appearance Cloudy A Urine pH 8.5 Ur Specific [place] 1.020 Urine Protein Negative Urine Glucose (UA) Negative Urine Ketones Negative Urine Blood Negative Urine Nitrite Negative Urine Bilirubin Negative Urine Urobilinogen 0.2 Ur Leukocyte Esterase Trace A Urine RBC 0-2 Urine WBC 2-5 Ur Squamous Epith Cells Few Urine Bacteria None SARS-CoV-2 (PCR) Negative SARS-CoV-2 Influenza Type A (PCR) Negative PCR FLU A Influenza Type B (PCR) Negative PCR FLU B RSV (PCR) Negative PCR RSV Discharge Plan Discharge Disposition: Home, Self-Care Date of Admission: 01/05/23 20:59 Attending Provider on Discharge: Camila Samuels Primary Care Provider: Provider,Not a Local Condition: Stable Anticipated Discharge Date/Time: 01/06/23 11:38 Discharge Medications: Continued hydrocortisone 10 mg tablet 5 - 10 mg PO TID Rx Instructions: 10mg in the am, 10mg midday and 5mg in the evening. triamcinolone acetonide 0.1 % cream 1 applic TOPICAL BID PRN Patient Comments: APPLY 1 APPLICATION TOPICALLY TWICE DAILY. APPLY TO BACK Eliquis 5 mg tablet 5 mg PO BID Discharge Orders: Discharge Order (Routine); Ordered 01/06/23 Ordered By: Camila Samuels Patient Education: Fever in Adults (ED) Additional Instructions: All looks good today! No growth on Blood Cultures. I've updated your Oncology team and will fax them your results. Other medications that can help your symptoms (OTC): Flonase nasal spray 1-2 times/day, Nyquil/Dayquil. You need to return to ED with any new or worsening symptoms. Activity Level: Activity as Tolerated Discharge Diet: Regular Follow Up Appointments: Provider,Not a Local [Primary Care Provider] - (see [facility] next week in f/u. This appointment is already made, see notes.) Ashley Allen MD [Referring] - Forms: [employer] Info Instructions
--- NOTE | 2023-01-06 12:22 | PC.NURSE ---
PATIENT DISCHARGED TO HOME WITH , VERBALIZED UNDERSTANDING OF DISCHARGE INSTRUCTIONS, OCCASIONAL COUGH NOTED, UP IND WITH STEADY GAIT, AFEBRILE, PORT HEP LOCKED PRIOR TO DE-ACCESSING, LEFT AROUND 1220 TO HOME.
== END 2023-01-06 12:20 | disposition home or self-care (01) | DRG 722 ==
LOC: ED 19:05 → MEDSURG 19:36
PROVIDERS: Admitting Provider Family Medicine; Emergency Provider Student in an Organized Health Care Education/Training Program; Visit Provider Family Medicine
DX: R50.9 Fever, unspecified (principal); C78.7 Secondary malignant neoplasm of liver and intrahepatic bile duct; Z86.711 Personal history of pulmonary embolism; Z79.01 Long term (current) use of anticoagulants; Z86.718 Personal history of other venous thrombosis and embolism; R05.9 Cough, unspecified; Z85.3 Personal history of malignant neoplasm of breast
CPT/HCPCS: 36415; 71046; 71275; 80053; 81001; 83605; 83690; 83735; 84484; 85025; 85379; 87040; 87631; 93005; 99283; 99285; A9270; J1642; J1885; J7030; J7120; Q9967

== ENCOUNTER 2023-01-27 13:35 | Emergency (ER) | payer BC, SELFPAY ==
[2023-01-27 13:50] VITALS: BP 112/69; PULSE 104; RESP 20; TEMP 36.9; O2SAT 95; BMI 30.1
[2023-01-27 14:00] VITALS: BP 128/76; O2SAT 94
--- NOTE | 2023-01-27 14:15 | CRLHL7_ITS ---
For Patients: As a result of the Century Cures Act, medical imaging exams and procedure reports are released immediately into your electronic medical record. You may view this report before your referring provider. If you have questions, please contact your health care provider. Indication: Cough. Shortness of breath. Technique: Two view upright PA and lateral chest x-ray. Comparison: 01/05/2023. Findings: Lungs clear. Heart size normal. No pleural fluid or pneumothorax. Port-A-Cath remains in place with tip in the right atrium. No musculoskeletal abnormality identified. Impression: 1. No change from 01/05/2023. No acute pathology identified. 2. Port-A-Cath. Dictated by Kalia Hollingsworth MD @ 01/27/2023 2:49:50 PM (Electronically Signed)
--- NOTE | 2023-01-27 14:34 | ED_ITS ---
HPI - Fever General Chief Complaint: Fever Stated Complaint: fever Time Seen by Provider: 01/27/23 14:09 Source: patient Mode of arrival: ambulatory Limitations: no limitations History of Present Illness HPI Narrative: Patient is a 52-year-old female with a history of metastatic breast cancer on chemotherapy presenting to emergency department for a fever. She notes since yesterday she has been having intermittent fevers. She states she is on chemotherapy as cancer so she is very cautious number she develops a fever. Continued today so she came to emergency department for evaluation. Last chemotherapy was a little under 2 weeks ago. She was here for similar symptoms about a month ago and was admitted and discharged the next day. She denies fatigue, weakness, numbness. Does states she has been having a cough now for a while and every time she coughs her whole body hurts. States she has no chest pain or abdominal pain at rest but since she coughs she develops pain for short amount of time and then goes away with the coughing stops. Denies shortness of breath. Denies weakness or numbness. Related Data Home Medications Medication Instructions Recorded Confirmed hydrocortisone 10 mg tablet 5 - 10 mg PO TID 11/20/21 01/06/23 triamcinolone acetonide 0.1 % 1 applic topical BID PRN 11/20/21 01/05/23 topical cream apixaban 5 mg tablet (Eliquis) 5 mg PO BID 01/05/23 01/05/23 Allergies Allergy/AdvReac Type Severity Reaction Status Date / Time No Known Drug Allergies Allergy Verified 01/27/23 13:54 Review of Systems Status of ROS Reports: 10 or more systems reviewed and unremarkable except as noted in History and below [facility] Medical History Breast cancer metastasized to liver ?C50.919 - Malignant neoplasm of unspecified site of unspecified female breast (ICD-10) ?C78.7 - Secondary malignant neoplasm of liver and intrahepatic bile duct (ICD-10) Pulmonary embolism ?I26.99 - Other pulmonary embolism without acute cor pulmonale (ICD-10) DVT (deep venous thrombosis) ?I82.409 - Acute embolism and thrombosis of unspecified deep veins of unspecified lower extremity (ICD-10) Surgical History H/O LEEP ?Z98.890 - Other specified postprocedural states (ICD-10) Hx of appendectomy ?Z90.49 - Acquired absence of other specified parts of digestive tract (ICD- 10) Social History What is your current living situation?: I presently have a place to live Problems where you live: no known problems Problems where you live details: NA In the past 12 months, utilities in danger of being shut off: no In past 12 months, lack of transportation kept you from medical appts, meetings, work, or getting things needed for daily living: no In the past 12 mos, have been you worried that your food would run out before you had money to buy more?: never true In the past 12 mos, the food you bought just didn't last and you didn't have money to buy more?: never true Smoking Status: Former smoker Do you use any of these nicotine containing products: None Second hand tobacco smoke exposure: No How often do you have a drink containing alcohol: never How often do you have six or more drinks on one occasion: Never AUDIT-C Alcohol total score: 0 Non-prescribed substance use: denies use Caffeine: No How often does anyone, including family, friends and others, physically hurt you : never How often does anyone, including family, friends and others, insult or talk down to you: never How often does anyone, including family, friends and others, threaten you with harm: never How often does anyone, including family, friends and others, scream or curse at you: never service: No Exam Narrative Exam Narrative: Const: Well-nourished, Well-developed, in mild distress Eyes: PERRL, no conjunctival injection, and symmetrical lids HENT: Atraumatic external nose and ears. Moist mucous membranes. Neck: Symmetric, trachea midline, No thyromegaly. CVS: RRR, No murmurs or gallops. Peripheral pulses 2+ and equal in all extremities RESP: Unlabored respiratory effort. Clear to auscultation bilaterally. GI: Nontender/Nondistended, No rebound or guarding. MSK:Extremities w/o deformity, Normal Active ROM Skin: Warm, Dry. No rashes or lesions. Neuro: Normal Muscle tone, No focal neurological deficits. Psych: Awake, Alert, & Oriented x3. Appropriate mood and affect. Const Vital Signs, click to edit/add: Vital Signs - 24 hr 01/27/23 13:50 01/27/23 14:00 01/27/23 17:00 Temperature 98.5 F 98.6 F Pulse Rate [Right Pulse Oximeter] 104 H Respiratory Rate 20 Blood Pressure [Right Arm] 128/76 Blood Pressure [Right Upper Arm] 112/69 Pulse Oximetry 95 94 Oxygen Delivery Method Room Air Room Air 01/27/23 17:06 01/27/23 18:02 01/27/23 18:02 Temperature 99.5 F 98.8 F Pulse Rate [Right Pulse Oximeter] 100 98 Respiratory Rate 18 18 Blood Pressure [Right Arm] Blood Pressure [Right Upper Arm] 126/76 118/76 Pulse Oximetry 96 Oxygen Delivery Method Room Air Course Vital Signs Vital signs: Initial Vital Signs Temperature 98.5 F 01/27/23 13:50 Temperature Source Temporal Artery Scan 01/27/23 13:50 Pulse Rate 104 H 01/27/23 13:50 Pulse Rhythm Regular 01/27/23 13:50 Pulse Strength 3+ Normal 01/27/23 13:50 Respiratory Rate 20 01/27/23 13:50 Blood Pressure 112/69 01/27/23 13:50 Blood Pressure Mean 83 01/27/23 13:50 Blood Pressure Position Sitting 01/27/23 13:50 Pulse Oximetry 95 01/27/23 13:50 Oxygen Delivery Method Room Air 01/27/23 13:50 Vital Signs Temperature 98.5 F 01/27/23 13:50 Pulse Rate 104 H 01/27/23 13:50 Respiratory Rate 20 01/27/23 13:50 Blood Pressure 112/69 01/27/23 13:50 Pulse Oximetry 95 01/27/23 13:50 Oxygen Delivery Method Room Air 01/27/23 13:50 Temperature 98.8 F 01/27/23 18:02 Pulse Rate 98 01/27/23 18:02 Respiratory Rate 18 01/27/23 18:02 Blood Pressure 118/76 01/27/23 18:02 Pulse Oximetry 96 01/27/23 17:06 Oxygen Delivery Method Room Air 01/27/23 17:06 Medications Administered Medications: Discontinued Medications Generic Name Dose Route Start Last Admin Trade Name Freq PRN Reason Stop Dose Admin Heparin Sodium (Porcine) 500 unit 01/27/23 17:43 01/27/23 18:01 Heparin 500 Unit/5 Ml Syringe IVF 01/27/23 17:44 500 unit ONCE ONE Administration Lactated Ringer's 1,000 mls @ 1,000 mls/hr 01/27/23 16:50 01/27/23 17:44 Lactated Ringers 1000 Ml IV 01/27/23 17:49 Infused .Q1H ONE Infusion MDM - Fever MDM Narrative Medical decision making narrative: Patient is a 52-year-old female presenting to emergency department for a fever. She does not have a fever in our emergency department checked orally. Notably she says her thermometer shows she has a fever which he takes the right side of her forehead but not 1st checked the left. She is having a cough which he says is worse than last time she was here but she is overall feeling less fatigued. Previously when she was here for the these symptoms she appeared worse and was admitted to the hospital. CTA was done at that time showing no acute abnormalities. Since she did have an elevated pulse in says she has a fever home I did a septic workup including CBC, CMP, blood cultures, lactate. Lactate was elevated 2.3 and fluids were given. White blood cell count was 12.61. Chest x-ray was done and showed no concerning abnormalities. COVID and flu were negative. I spoke to Dr. Reyes of male oncology. He recommends considering she is hemodynamically stable and we cannot say for certain if she ever even had a fever she she can be discharged home with follow-up with oncology tomorrow. I spoke to her about this and she is agreeable to this plan. Lab Data Labs: Lab Results 01/27/23 01/27/23 Range/Units 14:16 14:51 WBC 12.61 H (4.50-11.00) K/uL RBC 3.86 L (4.00-5.20) m/uL Hgb 11.6 L (12.0-16.0) gm/dL Hct 36.1 (33.0-51.0) % MCV 94 (80-100) fL MCH 30 (26-34) pg MCHC 32 (32-36) gm/dL RDW Coeff of Edin 17.9 H (11.5-15.5) % Plt Count 268 (140-440) K/uL Neut % (Auto) 69.0 (42.0-72.0) % Lymph % (Auto) 9.9 L (20-44) % [place] % (Auto) 19.8 H (0.0-11.0) % Eos % (Auto) 0.0 (0.0-7.0) % Baso % (Auto) 0.2 (0.0-3.0) % Neut # (Auto) 8.70 H (1.7-7.0) K/uL Lymph # (Auto) 1.20 (0.90-2.90) K/uL [place] # (Auto) 2.50 H (0.00-0.90) K/UL Eos # (Auto) 0.00 (0.00-0.50) K/uL Baso # (Auto) 0.00 (0.00-0.30) K/uL Abs Immat Gran (auto) 0.10 (0.00-0.30) K/uL Imm/Tot Granulo (auto) 1.1 % Sodium 135 (135-149) mmol/L Potassium 3.7 (3.6-5.1) mmol/L Chloride 101 (96-114) mmol/L Carbon Dioxide 26 (20-32) mmol/L Anion Gap 8 (7-15) mEq/L BUN 15 (7-30) mg/dL Creatinine 0.9 (0.5-1.5) mg/dL Estimated Creat Clear 59.80 Estimated GFR 76 ml/min Glucose 104 (60-115) mg/dL Lactate 2.3 H (0.5-1.9) mmol/L Calcium 9.3 (8.4-10.6) mg/dL Total Bilirubin 1.1 (0.1-1.5) mg/dL AST 161 H (12-35) U/L ALT 65 H (4-35) U/L Alkaline Phosphatase 132 (40-150) U/L Troponin I 0.03 (0.01-0.04) ng/mL Total Protein 6.3 (6.0-8.3) g/dL Albumin 3.4 (3.3-5.0) g/dL SARS-CoV-2 (PCR) Negative SARS-CoV-2 (Negative) Influenza Type A (PCR) Negative PCR FLU A (Negative) Influenza Type B (PCR) Negative PCR FLU B (Negative) RSV (PCR) Negative PCR RSV (Negative) Imaging Data Chest x-ray: Radiologist's impression: 1. No change from 01/05/2023. No acute pathology identified. 2. Port-A-Cath. Dictated by Kalia Hollingsworth MD @ 01/27/2023 2:49:50 PM ECG Data Attestation: I personally reviewed and interpreted this ECG as follows: Prior ECG tracings: available for review (01/05/2023) Interpretation: Normal sinus rhythm, rate 97 beats per minute, normal intervals, normal axis, no ST or T-wave abnormalities Discharge Plan Discharge Clinical Impression: Fever Qualifiers: Fever type: unspecified Qualified Code(s): R50.9 - Fever, unspecified Patient Disposition: Home, Self-Care Condition: Stable Instructions: Fever in Adults (ED) Additional Instructions: Call your oncology team in the morning. Return for new or worsening symptoms. Prescriptions: No Action hydrocortisone 10 mg tablet 5 - 10 mg PO TID Rx Instructions: 10mg in the am, 10mg midday and 5mg in the evening. triamcinolone acetonide 0.1 % cream 1 applic TOPICAL BID PRN Patient Comments: APPLY 1 APPLICATION TOPICALLY TWICE DAILY. APPLY TO BACK Eliquis 5 mg tablet 5 mg PO BID Follow Up/Referrals: Provider,Not a Local [Primary Care Provider] - Stand Alone Forms: [employer] Info Instructions
[2023-01-27 15:10] LABS: Lactate* 2.3 mmol/L (0.5-1.9)
[2023-01-27 15:24] LABS: Basophils Percent Auto 0.2 % (0.0-3.0); Hematocrit 36.1 % (33.0-51.0); Hemoglobin* 11.6 gm/dL (12.0-16.0); Immature Granulocytes Pct Auto 1.1 %; Lymphocytes Percent Auto 9.9 % (20-44); Mean Corpuscular HGB Conc 32 gm/dL (32-36); Mean Corpuscular Hemoglobin 30 pg (26-34); Mean Corpuscular Volume 94 fL (80-100); Monocytes Percent Auto 19.8 % (0.0-11.0); Platelet Count* 268 K/uL (140-440); RDW Coefficient of Variation % 17.9 % (11.5-15.5); Red Blood Count 3.86 m/uL (4.00-5.20); Slide Review Reflex No; White Blood Count* 12.61 K/uL (4.50-11.00)
[2023-01-27 15:33] LABS: Albumin* 3.4 g/dL (3.3-5.0); Chloride* 101 mmol/L (96-114); Potassium* 3.7 mmol/L (3.6-5.1); Sodium* 135 mmol/L (135-149)
[2023-01-27 15:35] LABS: Bilirubin Total* 1.1 mg/dL (0.1-1.5); Creatinine* 0.9 mg/dL (0.5-1.5); Estimated Glomerular Filt Rate 76 ml/min
[2023-01-27 15:36] LABS: Alanine Aminotransferase* 65 U/L (4-35); Alkaline Phosphatase* 132 U/L (40-150); Anion Gap 8 mEq/L (7-15); Aspartate Amino Transferase* 161 U/L (12-35); Blood Urea Nitrogen* 15 mg/dL (7-30); Calcium* 9.3 mg/dL (8.4-10.6); Carbon Dioxide* 26 mmol/L (20-32); Glucose* 104 mg/dL (60-115); Total Protein* 6.3 g/dL (6.0-8.3)
[2023-01-27 15:48] LABS: Troponin I* 0.03 ng/mL (0.01-0.04)
[2023-01-27 15:49] LABS: PCR FLU A Negative PCR FLU A (Negative); PCR FLU B Negative PCR FLU B (Negative); PCR RSV Negative PCR RSV (Negative)
[2023-01-27 15:53] LABS: SARS PCR* Negative SARS-CoV-2 (Negative)
[2023-01-27 17:00] VITALS: TEMP 37
[2023-01-27] MEDS: LACTATED RINGERS 1000 ML 1,000 ML IV (17:00)
[2023-01-27 17:06] VITALS: BP 126/76; PULSE 100; RESP 18; TEMP 37.5; O2SAT 96
[2023-01-27] MEDS: HEPARIN 500 UNIT/5 ML SYRINGE IVF (18:01)
[2023-01-27 18:02] VITALS: BP 118/76; PULSE 98; RESP 18; TEMP 37.1
== END 2023-01-27 18:09 | disposition home or self-care (01) ==
PROVIDERS: Emergency Provider Student in an Organized Health Care Education/Training Program
DX: R50.9 Fever, unspecified (principal); C50.912 Malignant neoplasm of unspecified site of left female breast
CPT/HCPCS: 36415; 71046; 80053; 83605; 84484; 85025; 87040; 87631; 93005; 99283; 99284; J1642; J7120